=== PATIENT | male | born 1975 | race Caucasian/White ===

== ENCOUNTER 2022-01-12 07:08 | Inpatient (IN) ==
[2022-01-12] MEDS ORDERED: cefTRIAXone SODIUM 2,000 MG/70 ML BAG IV STA (07:24)
[2022-01-12] MEDS ORDERED: HYDROCORTISONE SOD SUCCINATE 100 MG/2 ML VIAL IV STA (07:24)
--- NOTE | 2022-01-12 07:32 | Emergency Department Note ---
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 His said that he was sick yesterday he managed go to work but did not work since last night, he has not answering questions. He is got this way before with his sodium getting low his says he does not have any Soudan's disease and does not take his steroids regularly. He had a slight cough. He has not been vaccinated against COVID but had no sick contacts. No trauma or injury no complaints of pain that she knows of he he is not been vomiting he had slight diarrhea at one point. No rash. He is followed by Dr. Kat Home Medications Medication Instructions Recorded Confirmed Type hydrocortisone 20 mg tablet See Rx Instructions .ROUTE 07/04/20 01/12/22 Rx .COMPLEX #135 tab Allergies Allergy/AdvReac Type Severity Reaction Status Date / Time No Known Allergies Allergy Verified 01/12/22 08:05 Past Med/Surg History Family History Mother Diabetes Grandfather (Maternal) Diabetes Uncle Diabetes maternal uncles Myocardial infarction paternal uncle Denies family history of Ovarian cancer Prostate cancer Breast cancer Lung cancer Colorectal cancer Hypertension Stroke Social History Smoking Status: Never smoker Second Hand Exposure: No; Hx Alcohol Use: No Hx Substance Use: No Preferred Language: Ethiopian Hearing Ability: Normal Inspector Watch Train Required: No marital status: Current Living Situation: Family Current Living Situation Comment: spouse and 6 children How many Children do You have: 6 Feels Safe at Home: Yes Childhood Exposure to Second-Hand Smoke: Yes Seatbelt Use: always Sunscreen Use: No Review of Systems Unobtainable due to reduced consciousness Physical Exam Vital Signs Vital Signs - 24 hr 01/12/22 07:12 01/12/22 07:30 01/12/22 07:48 Temperature 38.7 C H Temperature Source Temporal Artery Scan Pulse Rate 126 H 95 H Pulse Rate [Left Radial] Pulse Rate from SpO2 Sensor Pulse Rhythm Pulse Rhythm [Left Radial] Respiratory Rate 16 29 H 18 Respiratory Effort / Characteristics Non-Labored Non-Labored Spontaneous Respiratory Depth Normal Respiratory Pattern Blood Pressure 108/64 113/66 Blood Pressure [Left Arm] Blood Pressure Mean 78 81 Blood Pressure Mean [Left Arm] Blood Pressure Position [Left Arm] Pulse Oximetry 95 96 Oxygen Delivery Method Room Air Room Air Sepsis Recent Fever Within 48 Hours Yes Sepsis New/Unexplained Change in Mental Status Yes Sepsis Action Taken by Nursing Physician Notified 01/12/22 08:00 01/12/22 08:50 01/12/22 09:00 Temperature Temperature Source Pulse Rate 107 H 99 H 95 H Pulse Rate [Left Radial] Pulse Rate from SpO2 Sensor 103 H Pulse Rhythm Pulse Rhythm [Left Radial] Respiratory Rate 20 24 22 Respiratory Effort / Characteristics Non-Labored Spontaneous Respiratory Depth Respiratory Pattern Blood Pressure 124/71 103/61 102/63 Blood Pressure [Left Arm] Blood Pressure Mean 88 75 76 Blood Pressure Mean [Left Arm] Blood Pressure Position [Left Arm] Pulse Oximetry 96 96 97 Oxygen Delivery Method Room Air Room Air Sepsis Recent Fever Within 48 Hours Sepsis New/Unexplained Change in Mental Status Sepsis Action Taken by Nursing 01/12/22 09:30 01/12/22 10:00 01/12/22 10:35 Temperature Temperature Source Pulse Rate 87 90 Pulse Rate [Left Radial] Pulse Rate from SpO2 Sensor Pulse Rhythm Pulse Rhythm [Left Radial] Respiratory Rate 21 17 Respiratory Effort / Characteristics Respiratory Depth Respiratory Pattern Blood Pressure 96/57 L 98/59 L 102/57 L Blood Pressure [Left Arm] Blood Pressure Mean 70 72 72 Blood Pressure Mean [Left Arm] Blood Pressure Position [Left Arm] Pulse Oximetry 97 98 Oxygen Delivery Method Room Air Room Air Sepsis Recent Fever Within 48 Hours Sepsis New/Unexplained Change in Mental Status Sepsis Action Taken by Nursing 01/12/22 10:40 01/12/22 10:50 01/12/22 11:00 Temperature Temperature Source Pulse Rate 77 83 80 Pulse Rate [Left Radial] Pulse Rate from SpO2 Sensor 77 84 81 Pulse Rhythm Pulse Rhythm [Left Radial] Respiratory Rate 17 19 19 Respiratory Effort / Characteristics Respiratory Depth Respiratory Pattern Blood Pressure 105/61 Blood Pressure [Left Arm] Blood Pressure Mean 75 Blood Pressure Mean [Left Arm] Blood Pressure Position [Left Arm] Pulse Oximetry 95 97 93 Oxygen Delivery Method Sepsis Recent Fever Within 48 Hours Sepsis New/Unexplained Change in Mental Status Sepsis Action Taken by Nursing 01/12/22 11:10 01/12/22 11:20 01/12/22 11:30 Temperature Temperature Source Pulse Rate 79 86 77 Pulse Rate [Left Radial] Pulse Rate from SpO2 Sensor 78 85 77 Pulse Rhythm Pulse Rhythm [Left Radial] Respiratory Rate 16 17 15 Respiratory Effort / Characteristics Respiratory Depth Respiratory Pattern Blood Pressure 82/50 L Blood Pressure [Left Arm] Blood Pressure Mean 60 Blood Pressure Mean [Left Arm] Blood Pressure Position [Left Arm] Pulse Oximetry 94 96 95 Oxygen Delivery Method Sepsis Recent Fever Within 48 Hours Sepsis New/Unexplained Change in Mental Status Sepsis Action Taken by Nursing 01/12/22 11:40 01/12/22 11:48 01/12/22 11:50 Temperature Temperature Source Pulse Rate 74 73 73 Pulse Rate [Left Radial] Pulse Rate from SpO2 Sensor 74 73 Pulse Rhythm Pulse Rhythm [Left Radial] Respiratory Rate 18 16 18 Respiratory Effort / Characteristics Respiratory Depth Respiratory Pattern Blood Pressure 78/44 L 108/67 Blood Pressure [Left Arm] Blood Pressure Mean 55 80 Blood Pressure Mean [Left Arm] Blood Pressure Position [Left Arm] Pulse Oximetry 94 93 Oxygen Delivery Method Sepsis Recent Fever Within 48 Hours Sepsis New/Unexplained Change in Mental Status Sepsis Action Taken by Nursing 01/12/22 11:51 01/12/22 12:00 01/12/22 12:10 Temperature Temperature Source Pulse Rate 71 73 Pulse Rate [Left Radial] 76 Pulse Rate from SpO2 Sensor 71 72 Pulse Rhythm Pulse Rhythm [Left Radial] Respiratory Rate 20 15 15 Respiratory Effort / Characteristics Non-Labored Respiratory Depth Normal Respiratory Pattern Regular Blood Pressure 102/62 Blood Pressure [Left Arm] 108/67 Blood Pressure Mean 75 Blood Pressure Mean [Left Arm] 80 Blood Pressure Position [Left Arm] Lying Pulse Oximetry 95 97 98 Oxygen Delivery Method Room Air Sepsis Recent Fever Within 48 Hours Sepsis New/Unexplained Change in Mental Status Sepsis Action Taken by Nursing 01/12/22 12:20 01/12/22 12:30 01/12/22 12:40 Temperature Temperature Source Pulse Rate 73 90 69 Pulse Rate [Left Radial] Pulse Rate from SpO2 Sensor 74 86 69 Pulse Rhythm Pulse Rhythm [Left Radial] Respiratory Rate 17 15 19 Respiratory Effort / Characteristics Respiratory Depth Respiratory Pattern Blood Pressure 101/67 Blood Pressure [Left Arm] Blood Pressure Mean 78 Blood Pressure Mean [Left Arm] Blood Pressure Position [Left Arm] Pulse Oximetry 95 95 96 Oxygen Delivery Method Sepsis Recent Fever Within 48 Hours Sepsis New/Unexplained Change in Mental Status Sepsis Action Taken by Nursing 01/12/22 12:50 01/12/22 13:00 01/12/22 13:10 Temperature Temperature Source Pulse Rate 68 76 Pulse Rate [Left Radial] 68 Pulse Rate from SpO2 Sensor 69 77 69 Pulse Rhythm Pulse Rhythm [Left Radial] Regular Respiratory Rate 15 15 Respiratory Effort / Characteristics Non-Labored Respiratory Depth Normal Respiratory Pattern Blood Pressure 104/69 Blood Pressure [Left Arm] Blood Pressure Mean 80 Blood Pressure Mean [Left Arm] Blood Pressure Position [Left Arm] Pulse Oximetry 96 95 95 Oxygen Delivery Method Room Air Sepsis Recent Fever Within 48 Hours Sepsis New/Unexplained Change in Mental Status Sepsis Action Taken by Nursing 01/12/22 13:27 01/12/22 13:30 01/12/22 13:40 Temperature Temperature Source Pulse Rate 66 65 67 Pulse Rate [Left Radial] Pulse Rate from SpO2 Sensor 67 Pulse Rhythm Pulse Rhythm [Left Radial] Respiratory Rate 18 19 16 Respiratory Effort / Characteristics Respiratory Depth Respiratory Pattern Blood Pressure 101/67 Blood Pressure [Left Arm] Blood Pressure Mean 78 Blood Pressure Mean [Left Arm] Blood Pressure Position [Left Arm] Pulse Oximetry 96 Oxygen Delivery Method Sepsis Recent Fever Within 48 Hours Sepsis New/Unexplained Change in Mental Status Sepsis Action Taken by Nursing 01/12/22 13:47 01/12/22 13:50 01/12/22 14:00 Temperature Temperature Source Pulse Rate 68 76 67 Pulse Rate [Left Radial] Pulse Rate from SpO2 Sensor 75 67 Pulse Rhythm Regular Pulse Rhythm [Left Radial] Respiratory Rate 20 23 16 Respiratory Effort / Characteristics Respiratory Depth Respiratory Pattern Blood Pressure 109/63 Blood Pressure [Left Arm] Blood Pressure Mean 78 Blood Pressure Mean [Left Arm] Blood Pressure Position [Left Arm] Pulse Oximetry 96 96 96 Oxygen Delivery Method Room Air Sepsis Recent Fever Within 48 Hours Sepsis New/Unexplained Change in Mental Status Sepsis Action Taken by Nursing 01/12/22 14:10 01/12/22 14:20 01/12/22 14:30 Temperature Temperature Source Pulse Rate 71 67 67 Pulse Rate [Left Radial] Pulse Rate from SpO2 Sensor 71 67 67 Pulse Rhythm Pulse Rhythm [Left Radial] Respiratory Rate 19 16 16 Respiratory Effort / Characteristics Respiratory Depth Respiratory Pattern Blood Pressure 100/67 Blood Pressure [Left Arm] Blood Pressure Mean 78 Blood Pressure Mean [Left Arm] Blood Pressure Position [Left Arm] Pulse Oximetry 95 95 97 Oxygen Delivery Method Sepsis Recent Fever Within 48 Hours Sepsis New/Unexplained Change in Mental Status Sepsis Action Taken by Nursing 01/12/22 14:40 01/12/22 14:50 01/12/22 15:00 Temperature Temperature Source Pulse Rate 68 68 64 Pulse Rate [Left Radial] 84 Pulse Rate from SpO2 Sensor 67 68 65 Pulse Rhythm Pulse Rhythm [Left Radial] Regular Respiratory Rate 16 15 15 Respiratory Effort / Characteristics Non-Labored Respiratory Depth Normal Respiratory Pattern Blood Pressure Blood Pressure [Left Arm] 119/63 Blood Pressure Mean Blood Pressure Mean [Left Arm] 81 Blood Pressure Position [Left Arm] Lying Pulse Oximetry 95 95 95 Oxygen Delivery Method Room Air Sepsis Recent Fever Within 48 Hours Sepsis New/Unexplained Change in Mental Status Sepsis Action Taken by Nursing 01/12/22 15:10 01/12/22 15:14 01/12/22 15:20 Temperature Temperature Source Pulse Rate 66 67 64 Pulse Rate [Left Radial] Pulse Rate from SpO2 Sensor 66 68 65 Pulse Rhythm Pulse Rhythm [Left Radial] Respiratory Rate 16 13 12 Respiratory Effort / Characteristics Respiratory Depth Respiratory Pattern Blood Pressure Blood Pressure [Left Arm] Blood Pressure Mean Blood Pressure Mean [Left Arm] Blood Pressure Position [Left Arm] Pulse Oximetry 95 95 98 Oxygen Delivery Method Sepsis Recent Fever Within 48 Hours Sepsis New/Unexplained Change in Mental Status Sepsis Action Taken by Nursing 01/12/22 15:30 01/12/22 15:41 Temperature Temperature Source Pulse Rate Pulse Rate [Left Radial] Pulse Rate from SpO2 Sensor 64 Pulse Rhythm Pulse Rhythm [Left Radial] Respiratory Rate Respiratory Effort / Characteristics Non-Labored Respiratory Depth Respiratory Pattern Blood Pressure 119/63 Blood Pressure [Left Arm] Blood Pressure Mean 81 Blood Pressure Mean [Left Arm] Blood Pressure Position [Left Arm] Pulse Oximetry 98 Oxygen Delivery Method Sepsis Recent Fever Within 48 Hours Sepsis New/Unexplained Change in Mental Status Sepsis Action Taken by Nursing General: Well developed well nourished mildly pale middle-aged Muslim gentleman. He moves all 4 extremities but is not answering questions. breathing comfortably on room ar, in no respiratory distress. HEENT: Normal cephalic atraumatic. Pupils are equal round and reactive to light. Extraocular movements are intact. Oropharynx is pink with moist mucous membranes. No swelling of the mouth lips or tongue. Neck: Supple with a midline trachea. No meningeal signs or stiffness, no JVD or bruits. No Stridor. Chest: Clear to auscultation bilaterally. No wheezes or rhonchi. No increased work of breathing. Heart: Regular rate and rhythm without murmurs or gallops. Abdomen: Soft nontender, nondistended without rebound guarding or rigidity. Extremities: No cyanosis clubbing or edema. No calf tenderness or assymetry Spine/Back. Non tender to palpation. No CVA tenderness Skin: Good turgor without rashes. Neurologic exam: Cranial nerves two through 12 are intact. Motor and sensation are intact and symmetrical throughout. No tremor. Course Administered Medications Hydrocortisone Sodium Succinate (Hydrocortisone Sod Succinate 100 Mg/2 Ml Vial) 50 mg IV Q6H BERNIE Stop: 02/11/22 13:59 Last Admin: 01/12/22 13:17 Dose: 50 mg Documented by: [id number] Sodium Chloride (Nss 1000ml) 1,000 mls @ 125 mls/hr IV .Q8H BERNIE Stop: 02/11/22 15:19 Last Admin: 01/12/22 15:23 Dose: 125 mls/hr Documented by: [id number] Discontinued Medications Acetaminophen (Acetaminophen 500 Mg Tab) 1,000 mg PO NOW STA Stop: 01/12/22 08:33 Last Admin: 01/12/22 08:42 Dose: Not Given Documented by: [id number] Hydrocortisone Sodium Succinate (Hydrocortisone Sod Succinate 100 Mg/2 Ml Vial) 100 mg IV NOW STA Stop: 01/12/22 07:25 Last Admin: 01/12/22 07:35 Dose: 100 mg Documented by: [id number] Sodium Chloride (Nss 1000ml) 1,000 mls @ 999 mls/hr IV .Q1H1M BERNIE Stop: 01/12/22 09:25 Last Infusion: 01/12/22 10:07 Dose: 0 mls/hr Documented by: [id number] Admin: 01/12/22 08:42 Dose: 999 mls/hr Documented by: [id number] Infusion: 01/12/22 08:42 Dose: 0 mls/hr Documented by: [id number] Admin: 01/12/22 07:35 Dose: 999 mls/hr Documented by: [id number] Ceftriaxone Sodium (Rocephin) 2,000 mg in 70 mls @ 140 mls/hr IV NOW STA Stop: 01/12/22 07:53 Last Infusion: 01/12/22 08:42 Dose: 0 mls/hr Documented by: [id number] Admin: 01/12/22 07:35 Dose: 140 mls/hr Documented by: [id number] Magnesium Sulfate/Dextrose (Magnesium Sulfate / D5w) 1 gm in 100 mls @ 100 mls/hr IV NOW STA Stop: 01/12/22 09:16 Last Infusion: 01/12/22 10:07 Dose: 0 mls/hr Documented by: [id number] Admin: 01/12/22 08:30 Dose: 100 mls/hr Documented by: [id number] Azithromycin 500 mg/ Dextrose 255 mls @ 127.5 mls/hr IV NOW ONE Stop: 01/12/22 11:29 Last Infusion: 01/12/22 12:46 Dose: 0 mls/hr Documented by: [id number] Admin: 01/12/22 10:40 Dose: 127.5 mls/hr Documented by: [id number] Ibuprofen (Ibuprofen 200 Mg Tab) 400 mg PO NOW STA Stop: 01/12/22 08:35 Last Admin: 01/12/22 08:54 Dose: 400 mg Documented by: [id number] Critical Care Time Critical Care Time: Yes Total Critical Care Time: 30 Because of the patient's altered mental status, tachycardia, concern for acute adrenal crisis and sepsis and dehydration, I have reassessed the patient multiple times given her multiple IV medications and vale the case with the hospitalist and family, I have personally spent greater than 30 minutes of critical care time in the direct management of this patient. This includes bedside care, interpretation of diagnostic studies, and testing, discussion with consultants, patient, and family members, and other required patient management activities. This 30 minutes is in excess of all separately billable procedures. Medical Decision Making Differential Diagnosis Sepsis, dehydration, adrenal crisis, electrolyte or metabolic abnormality, COVID, pneumonia, cardiac disease Medical Records Attestation: I reviewed the patient's medical records. Home Medications Current Medication List: was personally reviewed by me Laboratory Data Attestation: I reviewed the patient's lab results. Result diagrams: 01/12/22 07:15 01/12/22 07:15 Lab Results 01/12/22 01/12/22 01/12/22 Range/Units 07:15 07:15 07:15 WBC 8.36 (4.8-10.8) K/uL RBC 5.31 (4.7-6.1) M/uL Hgb 15.3 (14.0-18.0) g/dL Hct 44.8 (42-52) % MCV 84.4 (80-100) fL MCH 28.8 (25-34) pg MCHC 34.2 (32-36) g/dL RDW Std Deviation 40.9 (36.4-46.3) fL RDW Coeff of Charanjit 13.3 (11.5-14.5) % Plt Count 208 (130-400) K/uL MPV 9.9 (7.4-10.4) fL Immature Gran % (Auto) 0.2 % Neut % (Auto) 77.2 % Lymph % (Auto) 17.6 % Teller % (Auto) 4.8 % Eos % (Auto) 0.0 % Baso % (Auto) 0.2 % Neut # (Auto) 6.45 (1.4-6.5) K/uL Lymph # (Auto) 1.47 (1.2-3.4) K/uL Teller # (Auto) 0.40 (0.11-0.59) K/uL Eos # (Auto) 0.00 (0-0.5) K/uL Baso # (Auto) 0.02 (0-0.2) K/uL Immature Gran # (Auto) 0.02 (0.00-0.02) K/uL PT 14.0 H (9.0-12.0) Seconds INR 1.3 H (0.9-1.1) APTT 35.2 H (21.0-31.0) Seconds PTT Ratio 1.3 Sodium 129 L (136-145) mmol/L Potassium 3.7 (3.5-5.1) mmol/L Chloride 99 (98-107) mmol/L Carbon Dioxide 20 L (21-32) mmol/L Anion Gap 10 (3-11) BUN 19 (6-23) mg/dl Creatinine 1.24 (0.6-1.4) mg/dl Est Cr Clr Drug Dosing 84.1 ml/min Est GFR ( Amer) 80.3 ml/min Est GFR (Non-Af Amer) 69.3 ml/min BUN/Creatinine Ratio 15.3 (10-20) Glucose 102 H (70-99(Fasting)) mg/dl POC Glucose (70-99) mg/dl Lactate (0.4-2.0) mmol/L Calcium 8.6 (8.5-10.1) mg/dl Magnesium 1.6 L (1.7-2.4) mg/dl Total Bilirubin 0.7 (0.2-1.0) mg/dl AST 34 (13-39) U/L ALT 22 (7-52) U/L Alkaline Phosphatase 74 (34-104) U/L Troponin I High Sens 10.0 (0-20) pg/ml Total Protein 7.0 (6.0-8.3) gm/dl Albumin 4.1 (3.4-5.0) gm/dl Globulin 2.9 (2.5-4.0) gm/dl Albumin/Globulin Ratio 1.4 (0.9-2) Procalcitonin (0-0.5) ng/ml Random Cortisol mcg/dl Anaplasma Smear Babesia Smear Lyme Disease IgG Ab (Negative) Lyme Disease IgM Ab (Negative) SARS-CoV-2 (PCR) (Negative) Influenza Type A (PCR) (Neg) Influenza Type B (PCR) (Neg) RSV (RT-PCR) (Neg) 01/12/22 01/12/22 01/12/22 Range/Units 07:15 07:15 07:25 WBC (4.8-10.8) K/uL RBC (4.7-6.1) M/uL Hgb (14.0-18.0) g/dL Hct (42-52) % MCV (80-100) fL MCH (25-34) pg MCHC (32-36) g/dL RDW Std Deviation (36.4-46.3) fL RDW Coeff of Charanjit (11.5-14.5) % Plt Count (130-400) K/uL MPV (7.4-10.4) fL Immature Gran % (Auto) % Neut % (Auto) % Lymph % (Auto) % Teller % (Auto) % Eos % (Auto) % Baso % (Auto) % Neut # (Auto) (1.4-6.5) K/uL Lymph # (Auto) (1.2-3.4) K/uL Teller # (Auto) (0.11-0.59) K/uL Eos # (Auto) (0-0.5) K/uL Baso # (Auto) (0-0.2) K/uL Immature Gran # (Auto) (0.00-0.02) K/uL PT (9.0-12.0) Seconds INR (0.9-1.1) APTT (21.0-31.0) Seconds PTT Ratio Sodium (136-145) mmol/L Potassium (3.5-5.1) mmol/L Chloride (98-107) mmol/L Carbon Dioxide (21-32) mmol/L Anion Gap (3-11) BUN (6-23) mg/dl Creatinine (0.6-1.4) mg/dl Est Cr Clr Drug Dosing ml/min Est GFR ( Amer) ml/min Est GFR (Non-Af Amer) ml/min BUN/Creatinine Ratio (10-20) Glucose (70-99(Fasting)) mg/dl POC Glucose 103 H (70-99) mg/dl Lactate 0.9 (0.4-2.0) mmol/L Calcium (8.5-10.1) mg/dl Magnesium (1.7-2.4) mg/dl Total Bilirubin (0.2-1.0) mg/dl AST (13-39) U/L ALT (7-52) U/L Alkaline Phosphatase (34-104) U/L Troponin I High Sens (0-20) pg/ml Total Protein (6.0-8.3) gm/dl Albumin (3.4-5.0) gm/dl Globulin (2.5-4.0) gm/dl Albumin/Globulin Ratio (0.9-2) Procalcitonin 3.18 H (0-0.5) ng/ml Random Cortisol mcg/dl Anaplasma Smear Babesia Smear Lyme Disease IgG Ab (Negative) Lyme Disease IgM Ab (Negative) SARS-CoV-2 (PCR) (Negative) Influenza Type A (PCR) (Neg) Influenza Type B (PCR) (Neg) RSV (RT-PCR) (Neg) 01/12/22 01/12/22 01/12/22 Range/Units 07:58 09:20 09:20 WBC (4.8-10.8) K/uL RBC (4.7-6.1) M/uL Hgb (14.0-18.0) g/dL Hct (42-52) % MCV (80-100) fL MCH (25-34) pg MCHC (32-36) g/dL RDW Std Deviation (36.4-46.3) fL RDW Coeff of Charanjit (11.5-14.5) % Plt Count (130-400) K/uL MPV (7.4-10.4) fL Immature Gran % (Auto) % Neut % (Auto) % Lymph % (Auto) % Teller % (Auto) % Eos % (Auto) % Baso % (Auto) % Neut # (Auto) (1.4-6.5) K/uL Lymph # (Auto) (1.2-3.4) K/uL Teller # (Auto) (0.11-0.59) K/uL Eos # (Auto) (0-0.5) K/uL Baso # (Auto) (0-0.2) K/uL Immature Gran # (Auto) (0.00-0.02) K/uL PT (9.0-12.0) Seconds INR (0.9-1.1) APTT (21.0-31.0) Seconds PTT Ratio Sodium (136-145) mmol/L Potassium (3.5-5.1) mmol/L Chloride (98-107) mmol/L Carbon Dioxide (21-32) mmol/L Anion Gap (3-11) BUN (6-23) mg/dl Creatinine (0.6-1.4) mg/dl Est Cr Clr Drug Dosing ml/min Est GFR ( Amer) ml/min Est GFR (Non-Af Amer) ml/min BUN/Creatinine Ratio (10-20) Glucose (70-99(Fasting)) mg/dl POC Glucose (70-99) mg/dl Lactate (0.4-2.0) mmol/L Calcium (8.5-10.1) mg/dl Magnesium (1.7-2.4) mg/dl Total Bilirubin (0.2-1.0) mg/dl AST (13-39) U/L ALT (7-52) U/L Alkaline Phosphatase (34-104) U/L Troponin I High Sens (0-20) pg/ml Total Protein (6.0-8.3) gm/dl Albumin (3.4-5.0) gm/dl Globulin (2.5-4.0) gm/dl Albumin/Globulin Ratio (0.9-2) Procalcitonin (0-0.5) ng/ml Random Cortisol mcg/dl Anaplasma Smear See Comment Babesia Smear See Comment Lyme Disease IgG Ab Negative (Negative) Lyme Disease IgM Ab Negative (Negative) SARS-CoV-2 (PCR) NEGATIVE (Negative) Influenza Type A (PCR) Negative (Neg) Influenza Type B (PCR) Negative (Neg) RSV (RT-PCR) Negative (Neg) 01/12/22 Range/Units 09:20 WBC (4.8-10.8) K/uL RBC (4.7-6.1) M/uL Hgb (14.0-18.0) g/dL Hct (42-52) % MCV (80-100) fL MCH (25-34) pg MCHC (32-36) g/dL RDW Std Deviation (36.4-46.3) fL RDW Coeff of Charanjit (11.5-14.5) % Plt Count (130-400) K/uL MPV (7.4-10.4) fL Immature Gran % (Auto) % Neut % (Auto) % Lymph % (Auto) % Teller % (Auto) % Eos % (Auto) % Baso % (Auto) % Neut # (Auto) (1.4-6.5) K/uL Lymph # (Auto) (1.2-3.4) K/uL Teller # (Auto) (0.11-0.59) K/uL Eos # (Auto) (0-0.5) K/uL Baso # (Auto) (0-0.2) K/uL Immature Gran # (Auto) (0.00-0.02) K/uL PT (9.0-12.0) Seconds INR (0.9-1.1) APTT (21.0-31.0) Seconds PTT Ratio Sodium (136-145) mmol/L Potassium (3.5-5.1) mmol/L Chloride (98-107) mmol/L Carbon Dioxide (21-32) mmol/L Anion Gap (3-11) BUN (6-23) mg/dl Creatinine (0.6-1.4) mg/dl Est Cr Clr Drug Dosing ml/min Est GFR ( Amer) ml/min Est GFR (Non-Af Amer) ml/min BUN/Creatinine Ratio (10-20) Glucose (70-99(Fasting)) mg/dl POC Glucose (70-99) mg/dl Lactate (0.4-2.0) mmol/L Calcium (8.5-10.1) mg/dl Magnesium (1.7-2.4) mg/dl Total Bilirubin (0.2-1.0) mg/dl AST (13-39) U/L ALT (7-52) U/L Alkaline Phosphatase (34-104) U/L Troponin I High Sens (0-20) pg/ml Total Protein (6.0-8.3) gm/dl Albumin (3.4-5.0) gm/dl Globulin (2.5-4.0) gm/dl Albumin/Globulin Ratio (0.9-2) Procalcitonin (0-0.5) ng/ml Random Cortisol > 60.00 mcg/dl Anaplasma Smear Babesia Smear Lyme Disease IgG Ab (Negative) Lyme Disease IgM Ab (Negative) SARS-CoV-2 (PCR) (Negative) Influenza Type A (PCR) (Neg) Influenza Type B (PCR) (Neg) RSV (RT-PCR) (Neg) Imaging Data Attestation: I personally reviewed and interpreted this imaging study as follows: My Impression: Chest x-raymild haziness in the interstitium and more so the left lung. It could be an atypical process. Radiologist's Impression: Chest X-Ray 01/12/22 07:24 XR chest 1V portable CLINICAL HISTORY: Sepsis. COMPARISON STUDY: No previous studies for comparison. FINDINGS: Lung volumes are normal. There is no pneumothorax or pleural effusion. Cardiac size is normal. Mediastinal contours are normal. There is subtle interstitial prominence, greater within the left lung. No lobar consolidation. There is no evidence for pulmonary edema. IMPRESSION: Subtle interstitial thickening, greater within the left lung. This could be artifactual however an infectious process cannot be excluded. ACT 112: Negative or not required by law. Electronically signed by: Fransisco Soria M.D. 01/12/2022 7:51 AM ECG Data Attestation: I personally reviewed and interpreted this ECG as follows: Indication: + weakness Rate (beats per minute): 106 ECG Intervals/blocks: + Normal QRS, + Normal QT and + Normal [place] ECG [place]: + Normal ECG ST segments: + Normal ST segments ECG Findings: + PVCs Comparison ECG Date: no prior available MDM Narrative This patient comes in as described above I saw him immediately when they placed him in the room I was concerned based on his symptoms that he was septic and/or in adrenal crisis. IV access established x2 he was given normal saline fluid boluses and given Rocephin 2 g IV and Solu-Cortef 100 mg IV which I ordered immediately after seeing him. EKG does not suggest significant arrhythmia or ischemia he was placed on a bus monitor. A full sepsis type work-up was obtained. He was COVID swab. Chest x-ray was obtained. Chest x-ray shows a slight amount of haziness and could be an atypical infection. COVID testing was negative as was influenza. His white count is not significantly elevated his la ctic acid is not elevated. He does have a fever and a procalcitonin is elevated. I did order tickborne illness studies and they were negative thus far although somewhat pending. The patient sodium was low at 129 but not nearly as low as I expected. CO2 is also low. I do think he was dehydrated. He is doing significantly better he is awake now and able to answer questions where he was not like that when he came in he adamantly denies headache or pain anywhere he denies chest pain or shortness of breath. Denies neck pain or stiffness. This may be some sort of infectious illness/viral illness in conjunction with dehydration and his adrenal insufficiency. I do think he needs to be admit linda/observe for further treatment evaluation of consulted Dr. Bosch from the [facility] team to see him for these measures. Impression & Plan Weakness, Adrenal insufficiency, Dehydration, Lab test negative for COVID-19 virus, Pneumonia Discharge Plan Visit Data Chief Complaint: Dehydration Stated Complaint: DEHYDRATION ED Provider: Rajiv Berry Discharge Problem: Weakness, Adrenal insufficiency, Dehydration, Lab test negative for COVID-19 virus, Pneumonia Forms Stand Alone Forms: My [facility] Prescriptions Prescriptions: No Action hydrocortisone 20 mg tablet See Rx Instructions .ROUTE .COMPLEX Qty: 135 RF: 3 Referrals Referrals: Khalif Kat MD [Physician] - Discharge Problem: Pneumonia Qualifiers: Pneumonia type: due to unspecified organism Laterality: unspecified laterality Lung location: unspecified part of lung Qualified Code(s): J18.9 - Pneumonia, unspecified organism
[2022-01-12] MEDS: SODIUM CHLORIDE 0.9% 1000ML 1,000 ML IV SCH ×4 (07:35→18:44)
[2022-01-12 07:45] LABS: Basophils # (auto) 0.02 K/uL (0-0.2); Basophils % (auto) 0.2 %; Hematocrit (blood only) 44.8 % (42-52); Hemoglobin 15.3 g/dL (14.0-18.0); Immature Granulocytes # (auto) 0.02 K/uL (0.00-0.02); Immature Granulocytes % (auto) 0.2 %; Lymphocytes # (auto) 1.47 K/uL (1.2-3.4); Lymphocytes % (auto) 17.6 %; Mean Corpuscular Hemoglobin 28.8 pg (25-34); Mean Corpuscular Hgb Conc 34.2 g/dL (32-36); Mean Corpuscular Volume 84.4 fL (80-100); Mean Platelet Volume 9.9 fL (7.4-10.4); Monocytes % (auto) 4.8 %; Neutrophils # (auto) 6.45 K/uL (1.4-6.5); Neutrophils % (auto) 77.2 %; Platelet Count 208 K/uL (130-400); RDW Coefficient of Variation 13.3 % (11.5-14.5); RDW Standard Deviation 40.9 fL (36.4-46.3); Red Blood Count 5.31 M/uL (4.7-6.1); White Blood Count 8.36 K/uL (4.8-10.8)
--- NOTE | 2022-01-12 07:52 | XRay Report ---
XR chest 1V portable CLINICAL HISTORY: Sepsis. COMPARISON STUDY: No previous studies for comparison. FINDINGS: Lung volumes are normal. There is no pneumothorax or pleural effusion. Cardiac size is norm al. Mediastinal contours are normal. There is subtle interstitial prominence, greater within the left lung. No lobar consolidation. There is no evidence for pulmonary edema. IMPRESSION: Subtle interstitial thickening, greater within the left lung. This could be artifactual however an infectious process cannot be excluded. ACT 112: Negative or not required by law. Electronically signed by: Fransisco Soria M.D. 01/12/2022 7:51 AM
[2022-01-12 07:58] LABS: INR 1.3 (0.9-1.1); Partial Thromboplastin Ratio 1.3; Partial Thromboplastin Time 35.2 Seconds (21.0-31.0)
[2022-01-12 08:08] LABS: Albumin Globulin Ratio 1.4 (0.9-2); Albumin Level 4.1 gm/dl (3.4-5.0); BUN Creatinine Ratio 15.3 (10-20); Bilirubin,Total 0.7 mg/dl (0.2-1.0); Calcium 8.6 mg/dl (8.5-10.1); Creatinine Clr Calc Pharmacy 84.1 ml/min; Est GFR (African American) 80.3 ml/min; Est GFR (Non-African American) 69.3 ml/min; Globulin 2.9 gm/dl (2.5-4.0); Magnesium 1.6 mg/dl (1.7-2.4); Potassium 3.7 mmol/L (3.5-5.1)
[2022-01-12] MEDS ORDERED: MAGNESIUM SULFATE / D5W 1 GM/100 ML BAG IV STA (08:17)
[2022-01-12] MEDS ORDERED: ACETAMINOPHEN 500 MG TAB PO STA (08:32)
[2022-01-12] MEDS ORDERED: IBUPROFEN 200 MG TAB PO STA (08:34)
[2022-01-12 08:46] LABS: Influenza A virus by PCR Negative (Neg); Influenza B virus by PCR Negative (Neg); RSV by PCR Negative (Neg); SARS CoV2 RNA(COVID-19) InHosp NEGATIVE (Negative)
[2022-01-12] MEDS ORDERED: AZITHROMYCIN 500 MG in DEXTROSE 5% 250 ML IV ONE (09:30)
--- NOTE | 2022-01-12 09:48 | History & Physical Report ---
Date of Service January 12, 2022 Assessment & Plan (1) Adrenal insufficiency: Plan: 47 yo male with PMHx of [place]'s disease on hydrocortisone presents for lethargy. #Malaise with fever of unknown origin -suspect 2/2 infection vs adrenal crisis; did meet SIRS criteria on admission -most likely source of infection ddx lung vs GI -WBC, lactate wnl -blood cx pending -procal elevated 3.14 -empiric abx azithromycin, ceftriaxone x1 dose given in ED; will reassess for continued abx tomorrow -acetaminophen, ibuprofen given in ED for fever; cont. acetaminophen prn -1L NSS bolus in ED; cont. 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 hydrocortisone 50mg IV q6h -random cortisol ordered -1L NSS bolus in ED; cont. 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 2-3 days ago started feeling weak, progressively getting worse. says he has been alert and oriented but will intermittently fall asleep due to being overly fatigued. He is supposed to be taking 30mg hydrocortisone daily but states he only takes about 20mg daily because he feels he does not need more since he typically feels well. Has not been drinking as much water as he usually does. Has also had a loss of appetite with some intermittent loose stools, denies blood in stool. Was hospitalized about 5 years ago for similar issue. Denies alcohol use. Allergies Allergy/AdvReac Type Severity Reaction Status Date / Time No Known Allergies Allergy Verified 01/12/22 08:05 Home Medications Medication Instructions Recorded Confirmed Type hydrocortisone 20 mg tablet See Rx Instructions .ROUTE 07/04/20 01/12/22 Rx .COMPLEX #135 tab Past Med/Surg History Family History Mother Diabetes Grandfather (Maternal) Diabetes Uncle Diabetes maternal uncles Myocardial infarction paternal uncle Denies family history of Ovarian cancer Prostate cancer Breast cancer Lung cancer Colorectal cancer Hypertension Stroke Social History Smoking Status: Never smoker Second Hand Exposure: No; Hx Alcohol Use: No Hx Substance Use: No Preferred Language: Tajik Hearing Ability: Normal [employer]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 denies shortness of breath GI: +loose stools (no blood in stool). denies abdominal pain, nausea, vomiting, constipation : denies pain with urination, change in urinary frequency Musculoskeletal: denies recent injury Skin: denies new rash Neuro: denies new numbness, tingling Physical Exam Physical Exam: Constitutional: laying flat in mild acute distress, alert, toxic appearing. Vitals as above. HEENT: No scleral injection or discharge.Dry mucous membranes.Clear oropharynx, no exudate. TMs clear. Neck: Supple without lymphadenopathy or thyromegaly. Trachea midline. Lungs: Clear to auscultation bilaterally with good effort. Cardiac: Regular rate and rhythm.No murmurs. No extremity edema. Extremity pulses 2+ Abdomen: Bowel sounds present. Soft, nondistended.Mild diffuse tenderness. No guarding.No hepatosplenomegaly. MSK: No cyanosis or clubbing. Extremities motor strength 5/5. Skin: No rashes, warm, dry. Neurologic: Grossly intact cranial nerves. PERRL. Results & Data Results & Data ([facility]) Vital Signs (Past 12 Hours) Vital Signs Temp Pulse Resp BP Pulse Ox 01/12/22 09:00 95 H 22 102/63 97 01/12/22 08:50 99 H 24 103/61 96 01/12/22 08:00 107 H 20 124/71 96 01/12/22 07:48 18 96 01/12/22 07:30 95 H 29 H 113/66 01/12/22 07:12 38.7 C H 126 H 16 108/64 95 Laboratory Results Laboratory Results WBC 8.36 K/uL (4.8-10.8) 01/12/22 07:15 RBC 5.31 M/uL (4.7-6.1) 01/12/22 07:15 Hgb 15.3 g/dL (14.0-18.0) 01/12/22 07:15 Hct 44.8 % (42-52) 01/12/22 07:15 MCV 84.4 fL (80-100) 01/12/22 07:15 MCH 28.8 pg (25-34) 01/12/22 07:15 MCHC 34.2 g/dL (32-36) 01/12/22 07:15 RDW Std Deviation 40.9 fL (36.4-46.3) 01/12/22 07:15 RDW Coeff of Charanjit 13.3 % (11.5-14.5) 01/12/22 07:15 Plt Count 208 K/uL (130-400) 01/12/22 07:15 MPV 9.9 fL (7.4-10.4) 01/12/22 07:15 Immature Gran % (Auto) 0.2 % 01/12/22 07:15 Neut % (Auto) 77.2 % 01/12/22 07:15 Lymph % (Auto) 17.6 % 01/12/22 07:15 Lawrence % (Auto) 4.8 % 01/12/22 07:15 Eos % (Auto) 0.0 % 01/12/22 07:15 Baso % (Auto) 0.2 % 01/12/22 07:15 Neut # (Auto) 6.45 K/uL (1.4-6.5) 01/12/22 07:15 Lymph # (Auto) 1.47 K/uL (1.2-3.4) 01/12/22 07:15 Lawrence # (Auto) 0.40 K/uL (0.11-0.59) 01/12/22 07:15 Eos # (Auto) 0.00 K/uL (0-0.5) 01/12/22 07:15 Baso # (Auto) 0.02 K/uL (0-0.2) 01/12/22 07:15 Immature Gran # (Auto) 0.02 K/uL (0.00-0.02) 01/12/22 07:15 PT 14.0 Seconds (9.0-12.0) H 01/12/22 07:15 INR 1.3 (0.9-1.1) H 01/12/22 07:15 APTT 35.2 Seconds (21.0-31.0) H 01/12/22 07:15 PTT Ratio 1.3 01/12/22 07:15 Sodium 129 mmol/L (136-145) L 01/12/22 07:15 Potassium 3.7 mmol/L (3.5-5.1) 01/12/22 07:15 Chloride 99 mmol/L (98-107) 01/12/22 07:15 Carbon Dioxide 20 mmol/L (21-32) L 01/12/22 07:15 Anion Gap 10 (3-11) 01/12/22 07:15 BUN 19 mg/dl (6-23) 01/12/22 07:15 Creatinine 1.24 mg/dl (0.6-1.4) 01/12/22 07:15 Est Cr Clr Drug Dosing 84.1 ml/min 01/12/22 07:15 Est GFR ( Amer) 80.3 ml/min 01/12/22 07:15 Est GFR (Non-Af Amer) 69.3 ml/min 01/12/22 07:15 BUN/Creatinine Ratio 15.3 (10-20) 01/12/22 07:15 Glucose 102 mg/dl (70-99(Fasting)) H 01/12/22 07:15 POC Glucose 103 mg/dl (70-99) H 01/12/22 07:25 Lactate 0.9 mmol/L (0.4-2.0) 01/12/22 07:15 Calcium 8.6 mg/dl (8.5-10.1) 01/12/22 07:15 Magnesium 1.6 mg/dl (1.7-2.4) L 01/12/22 07:15 Total Bilirubin 0.7 mg/dl (0.2-1.0) 01/12/22 07:15 AST 34 U/L (13-39) 01/12/22 07:15 ALT 22 U/L (7-52) 01/12/22 07:15 Alkaline Phosphatase 74 U/L (34-104) 01/12/22 07:15 Troponin I High Sens 10.0 pg/ml (0-20) 01/12/22 07:15 Total Protein 7.0 gm/dl (6.0-8.3) 01/12/22 07:15 Albumin 4.1 gm/dl (3.4-5.0) 01/12/22 07:15 Globulin 2.9 gm/dl (2.5-4.0) 01/12/22 07:15 Albumin/Globulin Ratio 1.4 (0.9-2) 01/12/22 07:15 Procalcitonin 3.18 ng/ml (0-0.5) H 01/12/22 07:15 Anaplasma Smear See Comment 01/12/22 09:20 Babesia Smear See Comment 01/12/22 09:20 SARS-CoV-2 (PCR) NEGATIVE (Negative) 01/12/22 07:58 Influenza Type A (PCR) Negative (Neg) 01/12/22 07:58 Influenza Type B (PCR) Negative (Neg) 01/12/22 07:58 RSV (RT-PCR) Negative (Neg) 01/12/22 07:58 Impressions Chest X-Ray 01/12/22 07:24 XR chest 1V portable CLINICAL HISTORY: Sepsis. COMPARISON STUDY: No previous studies for comparison. FINDINGS: Lung volumes are normal. There is no pneumothorax or pleural effusion. Cardiac size is normal. Mediastinal contours are normal. There is subtle interstitial prominence, greater within the left lung. No lobar consolidation. There is no evidence for pulmonary edema. IMPRESSION: Subtle interstitial thickening, greater within the left lung. This could be artifactual however an infectious process cannot be excluded. ACT 112: Negative or not required by law. Electronically signed by: Fransisco Soria M.D. 01/12/2022 7:51 AM Supervising Physician Co-Signing Physician Notes I personally examined the patient and verified all reeves points of history and exam, discussed case, and agree with decision making with Dr Glover. Feeling sick for about 3 days prior to admission. CT some fevers and chills, some diarrhea multiple times throughout the day. Diminished appetite. No cough no shortness of breath. No skin rashes. No known sick contacts. Vitals noted, in general he is awake and alert fatigued but no distress. HEENT normocephalic atraumatic mucous membranes moist. Breathing unlabored no accessory muscle use good effort no rales rhonchi or wheeze with good effort. Cardio is regular without rubs murmurs gallops. Skin shows no rashes no pallor or icterus. Neuro without focal deficits. Abdomen soft nondistended nontender no masses organomegaly. Febrile illnesssuspect viral gastroenteritis compounded by adrenal insufficiency. Sent a random cortisol, but with hindsight this was an error given that it was after he been given IV hydrocortisone. I do suspect that he is not taking his hydrocortisone as well as he needs to be, and that, compounded by not having stress dosing for when he is sick probably led to an illness disproportionate to the severity he would normally have. Not seeing anything that appears to be bacterial, so for now we will hold off on further antibiotics. Serial exams, and reinstitute antibiotics if necessary. Follow cultures. That said, again I suspect viral gastroenteritis was the inciting event, and then relative adrenal insufficiency the reason that he got sicker than 1 would expect Resident Activity Tracking Resident Involvement: Resident Care Provided Care Provided: Adult Hospital Medicine
--- NOTE | 2022-01-12 10:09 | Electrocardiogram Report ---
Test Reason : Blood Pressure : / mmHG Vent. Rate : 106 BPM Atrial Rate : 106 BPM P-R Int : 132 ms QRS Dur : 098 ms QT Int : 354 ms P-R-T Axes : 070 099 068 degrees QTc Int : 470 ms Poor data quality, interpretation may be adversely affected Sinus tachycardia with occasional Premature ventricular complexes Inferior ST abnormality Rightward axis Abnormal ECG No previous ECGs available Confirmed by Breezy Watson ([id number]) on 01/12/2022 10:09:01 AM Referred By: REFERRED SELF Confirmed By:Breezy Watson
[2022-01-12 10:55] LABS: Lyme Ab IgG w/WB Rflx Negative (Negative); Lyme Ab IgM w/WB Rflx Negative (Negative)
[2022-01-12] MEDS: HYDROCORTISONE SOD SUCCINATE 100 MG/2 ML VIAL IV SCH ×2 (13:17→20:55)
[2022-01-12] MEDS ORDERED: ACETAMINOPHEN 325 MG TAB PO PRN (17:45)
[2022-01-12] MEDS ORDERED: ONDANSETRON INJ 2 MG/ML 2 ML VIAL IV PRN (17:45)
[2022-01-12] MEDS: ENOXAPARIN INJ 40 MG/0.4 ML SYR SQ SCH ×2 (18:40→18:43)
--- NOTE | 2022-01-12 19:39 | Billing Data ---
Date of Service January 12, 2022 Coding Level of Care Code 56485 Initial Inpt Care Lvl 3
[2022-01-12 19:59] LABS: Appearance Urine Clear (Clear); Bacteria Urine Automated Negative (Negative); Bilirubin Urine Negative (Negative); Blood Urine Negative (Negative); Color Urine Yellow; Glucose Urine UA Negative (Negative); Ketones Urine Trace (Negative); Leukocyte Esterase Urine Negative (Negative); Nitrite Urine Negative (Negative); Protein Urine Trace (Negative); RBC Urine Automated 0-4 /hpf (0-4); Specific Gravity Urine 1.027 (1.000-1.030); Urobilinogen Urine Negative (Negative)
[2022-01-12] MEDS: HYDROCORTISONE SOD 50 MG in SYRINGE 0 ML IV SCH (21:15)
[2022-01-13] MEDS: SODIUM CHLORIDE 0.9% 1000ML 1,000 ML IV SCH ×2 (01:42→10:55)
[2022-01-13] MEDS: HYDROCORTISONE SOD 50 MG in SYRINGE 0 ML IV SCH ×2 (03:38→08:21)
--- NOTE | 2022-01-13 08:03 | Hospitalist Progress Note ---
Date of Service January 13, 2022 Assessment & Plan (1) Adrenal insufficiency: Plan: 47 yo male with PMHx of [place]'s disease on hydrocortisone presents for lethargy. #Malaise with fever of unknown origin -suspect 2/2 infection vs adrenal crisis; did meet SIRS criteria on admission -most likely source of infection ddx lung vs GI -WBC, lactate wnl -blood cx pending -procal elevated 3.14 -empiric abx azithromycin, ceftriaxone x1 dose given in ED; will reassess for continued abx tomorrow -acetaminophen, ibuprofen given in ED for fever; cont. acetaminophen prn -1L NSS bolus in ED; cont. 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 hydrocortisone 50mg IV q6h -random cortisol ordered -1L NSS bolus in ED; cont. maintenance NSS -bmp am lab #Hypovolemic Hyponatremia -likely 2/2 dehydration and adrenal insufficiency -Na 129 -should resolve with NSS fluids and correction of adrenal sufficiency with hydrocortisone -bmp am lab #Hypomagnesemia -1gm mag given in ED -recheck mag am DVT ppx: Lovenox 40mg SQ q24h FEN/GI: NSS maintenance Code Status: DNI/DNR Dispo: med/surg (2) Dehydration: Admission and Anticipated Discharge Date Admission Date: January 12, 2022 Subjective Seen at bedside this morning. Looks more well appearing this morning. Overall he feels better and stronger, able to ambulate to bathroom with no complaints. Normal urine output. Stools still loose, denies blood or foul smell. Says he vomited his dinner last night as well as vomited couple of more times over night. Will see how breakfast goes this morning. Review of Systems Review of Systems: All systems reviewed & are unremarkable except as noted in Subjective Physical Exam Physical Exam: Constitutional: laying flat in no acute distress, alert, nontoxic appearing. Vitals as above. HEENT: No scleral injection or discharge.Moist mucous membranes.Clear oropharynx, no exudate. Neck: Supple without lymphadenopathy or thyromegaly. Trachea midline. Lungs: Clear to auscultation bilaterally with good effort. Cardiac: Regular rate and rhythm.No murmurs. No extremity edema. Extremity pulses 2+ Abdomen: Bowel sounds present. Soft, nondistended.Mild diffuse tenderness primarily periumbilical. No guarding.No hepatosplenomegaly. MSK: No cyanosis or clubbing. Extremities motor strength 5/5. Skin: No rashes, warm, dry. Neurologic: Grossly intact cranial nerves. PERRL. Results & Data Results & Data ([facility] [place]) Vital Signs (Past 12 Hours) Vital Signs Temp Pulse Resp BP Pulse Ox 01/12/22 22:47 36.7 C 72 16 105/64 95
[2022-01-13 08:56] LABS: INR 1.2 (0.9-1.1); Prothrombin Time 12.8 Seconds (9.0-12.0)
[2022-01-13 09:03] LABS: Basophils # (auto) 0.01 K/uL (0-0.2); Basophils % (auto) 0.1 %; Hematocrit (blood only) 36.4 % (42-52); Hemoglobin 12.6 g/dL (14.0-18.0); Immature Granulocytes # (auto) 0.02 K/uL (0.00-0.02); Immature Granulocytes % (auto) 0.2 %; Lymphocytes # (auto) 0.67 K/uL (1.2-3.4); Lymphocytes % (auto) 6.2 %; Mean Corpuscular Hemoglobin 28.3 pg (25-34); Mean Corpuscular Hgb Conc 34.6 g/dL (32-36); Mean Corpuscular Volume 81.6 fL (80-100); Mean Platelet Volume 10.3 fL (7.4-10.4); Monocytes # (auto) 0.34 K/uL (0.11-0.59); Monocytes % (auto) 3.2 %; Neutrophils # (auto) 9.72 K/uL (1.4-6.5); Neutrophils % (auto) 90.3 %; Platelet Count 164 K/uL (130-400); RDW Coefficient of Variation 13.5 % (11.5-14.5); RDW Standard Deviation 40.7 fL (36.4-46.3); Red Blood Count 4.46 M/uL (4.7-6.1); White Blood Count 10.76 K/uL (4.8-10.8)
[2022-01-13 09:22] LABS: BUN Creatinine Ratio 22.2 (10-20); Calcium 7.8 mg/dl (8.5-10.1); Creatinine Clr Calc Pharmacy 144.9 ml/min; Est GFR (African American) 129.7 ml/min; Est GFR (Non-African American) 111.9 ml/min; Magnesium 1.8 mg/dl (1.7-2.4); Potassium 3.8 mmol/L (3.5-5.1)
[2022-01-13 12:38] LABS: INR 1.2 (0.9-1.1); Partial Thromboplastin Ratio 1.1; Partial Thromboplastin Time 29.6 Seconds (21.0-31.0); Prothrombin Time 12.5 Seconds (9.0-12.0)
[2022-01-13] MEDS ORDERED: HYDROCORTISONE 10 MG TAB PO ONE (14:00)
[2022-01-13] MEDS ORDERED: HYDROCORTISONE 10 MG TAB PO SCH (14:00)
--- NOTE | 2022-01-13 18:25 | Discharge Summary ---
Date of Service January 13, 2022 Admission HPI Per Admitting Provider 47 yo male with PMHx of Enrique's disease on hydrocortisone presents for malaise. 2-3 days ago started feeling weak, progressively getting worse. says he has been alert and oriented but will intermittently fall asleep due to being overly fatigued. He is supposed to be taking 30mg hydrocortisone daily but states he only takes about 20mg daily because he feels he does not need more since he typically feels well. Has not been drinking as much water as he usually does. Has also had a loss of appetite with some intermittent loose stools, denies blood in stool. Was hospitalized about 5 years ago for similar issue. Denies alcohol use. Principal Diagnosis viral gastroenteritis Discharge Exam Constitutional WD/WN, vitals as above Eyes PERRL, conjunctivae normal, anicteric sclerae Respiratory normal respiratory effort, lungs clear to auscultation Cardiovascular Rate/Rhythm: regular rate and regular rhythm Vessels: normal peripheral pulses; no JVD Extremities: no edema Gastrointestinal (Abdomen) Inspection/Auscultation: normal bowel sounds; abdomen not distended Percussion/Palpation: abdomen soft; abdomen nontender and no guarding Musculoskeletal no cyanosis or clubbing, extremities motor strength 5/5 Skin no rashes, warm and dry Neurologic PERRL, EOMI, accommodation nl, no face palsy, no dysarthria CN's II-XI intact bilaterally and moves all extremities Psychiatric Orientation: alert and oriented x 3 Discharge Data Allergies Allergy/AdvReac Type Severity Reaction Status Date / Time No Known Allergies Allergy Verified 01/12/22 08:05 Consultations 01/12/22 09:30 ED Decision to Admit Stat Hospital Course (1) Adrenal insufficiency: 47 yo male with PMHx of [place]'s disease on hydrocortisone presents for lethargy. 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 hydrocortisone 50mg IV q6h overnight with improvement in condition -recommended and reinforced importance of hydrocortisone dosing -continue Hydrocortisone 20mg AM, and 10mg PM -recommended stress dose Hydrocortisone of 40mg AM, and 20mg PM for 3 days in the setting of illness and if no improvement he should seek medical care for direction on next steps. Elevated INR -on admission INR of 1.3, with elevation of PTT, and PT -repeat labs in AM demonstrated continuation of this trend -Circulating inhibitor screen for clotting disorder negative during hospitalization -no history of bleeding disorders or prolonged bleeding episodes -recommend follow-up with Hematology for further evaluation on potential sources of this potentially delayed clotting (2) Dehydration: Total Time Total Time Spent Total Time Spent (In Minutes): <30 Discharge Plan Discharge Items Patient Disposition: Home - Self-Care Reason For Visit: MALAISE Discharge Diagnosis: viral gatroenteritis Activity: Per Instructions section Non-emergency contact: Primary Care Provider Call non-emergency contact if: you have any medication questions, your symptoms worsen and you have a fever Follow-up/Referrals: PCP,NO [Primary Care Provider] - Diet: Regular Addtl Attending Provider Instructions: You were seen and admitted for concerns of a infection in the setting of your known adrenal insufficiency. During this, by restarting you steroids we were able to get ahead of your worsening and have you return to your normal energy level. As you are being discharged, it is important for you to resume the Hydrocortisone daily. You should take one pill (20mg) in the morning and one half of a pill (10mg) in the afternoon to maintain a normal level in your system that would match what would be a typical level for you. When you are sick, you should double these doses to two pills (40mg) in the morning, and one pill in the afternooon (20mg). This should be done for only 3 days, if you notice that at the end of the three days that you do not have improvement in your energy level you should be seen by a physician to determine the next steps. Additionally, with some of your blood work results it was demonstrated that your blood was slightly thinner than would be considered normal. We further tested this and were unable to find a direct source for this. It would be important for this to be followed up with a e business consultant in the coming months or sooner if you notice that you have prolonged bleeding that is unable to be controlled normally. Pending Studies at Discharge: No Stand-Alone Forms: My [facility], Smoking Cessation Medications and DC Order Prescriptions: Continued hydrocortisone 20 mg tablet See Rx Instructions .ROUTE .COMPLEX Qty: 135 RF: 3 Discharge Orders: Discharge Order (Routine); Ordered 01/13/22 Ordered By: Gabo Decker Admission Data Admit Date/Time: 01/12/22 11:57 Attending Provider: Feliz Dixon Admit Provider: Epifanio Glover Primary Care Provider: PCP,NO Other Providers: Feliz Dixon Other Interventions: Discharge Summary Assessment (RN) Last Done: 01/13/22 15:41 Supervising Physician Co-Signing Physician Notes I personally examined the patient and verified all reeves points of history and exam, discussed case, and agree with decision making with Dr Glover. Feeling much better, and feeling up to going home. Eating and drinking well. Feels like himself again. notes that he looks like himself again too. He notes that probably from his teens to mid 20s he did have very easy bleeding and bruising, but really nothing over the last 20 years or so. No family history of bleeding or bruising that he relates. Vitals noted, in general he is awake and alert pleasant no distress. HEENT normocephalic atraumatic mucous membranes moist. Breathing unlabored no accessory muscle use good effort. Skin shows no rashes no pallor or icterus. Neuro without focal deficits. Febrile illnesssuspect viral gastroenteritis compounded by adrenal insufficiency. Improved with supportive care, steroids, time. Definitely appears much improved and stable for home. Adrenal insufficiencydiscussed the physiology/need for replacement, and the need to be adherent with dosing. He notes that he felt that his PCP was driving to higher dosing than he needed, we discussed that certainly how he feels plays a significant role in what dosing he needs, but also that it should probably be done with physician guidancejust for him with a goal of trying to be on as little as he needsbut that this would be safer to be done with physician supervision than just "by feel"he acknowledges this. For now, 20 mg in the morning 10 mg in the afternoon. Discussed stress dosingto make it fairly easy to follow through, discussed doubling dosing for about 3 to 4 days, and if after 3 days he is not back to baseline, he should seek physician evaluation. Elevated PT/PTTno easy bruising now, oddly did have probably a decade to 15 years of easy bleeding/bruising in his teens to 20s. Mixing study nonrevealing. Discussed with patient that this should warrant outpatient hematology evaluation. He expressed understanding.
--- NOTE | 2022-01-13 19:41 | Billing Data ---
Date of Service January 13, 2022 Coding Level of Care Code D/C DAY MANAGEMENT <30 MINS
[2022-01-14] MEDS ORDERED: HYDROCORTISONE 10 MG TAB PO SCH ×2 (09:00→14:00)
[2022-01-15 06:46] LABS: Babesia microti DNA Not Detected (Not Detected)
--- NOTE | 2022-01-20 15:26 | Coding Query ---
To promote full compliance with coding requirements relating to patient care, provider participation is requested in all cases of income tax administrator uncertainty. Please assist us with the question(s) below: Coding Question(s): The diagnosis below was documented in the ER, then subsequently fell off all further documentation. Please indicate if it is still a possible diagnosis or ruled out. Physician's Response(s): Possible SEPSIS - (ER documents concern for Sepsis and the rest of the chart documents did meet SIRS criteria on admission) ( x ) Diagnosed and POA ( ) Diagnosed and not POA ( ) Ruled out ( ) Other (please specify) MTDD
== END 2022-01-13 16:49 | disposition home or self-care (01) | DRG 872 ==
LOC: ED 07:08 → 3N 11:57
DX: E86.0 Dehydration; T38.0X6A Underdosing of glucocorticoids and synthetic analogues, initial encounter; Z20.822 Contact with and (suspected) exposure to COVID-19; E83.42 Hypomagnesemia; A41.89 Other specified sepsis; Z28.310 Unvaccinated for COVID-19; E27.1 Primary adrenocortical insufficiency; E87.1 Hypo-osmolality and hyponatremia; Z91.128 Patient's intentional underdosing of medication regimen for other reason; A08.4 Viral intestinal infection, unspecified; Z79.52 Long term (current) use of systemic steroids; Z66 Do not resuscitate; R79.1 Abnormal coagulation profile